=== PATIENT | male | born 1955 | race Caucasian/White ===

== ENCOUNTER 2017-08-24 14:54 | Emergency (ER) | payer OTHER ==
[~2017-08-24] VITALS: Ht 175.3 cm; Wt 78.0 kg
[~2017-08-24 14:54] MED LIST: LORA2TAB96 PO
[2017-08-24] MEDS ORDERED: LORazepam 1 MG tablet PO ONE (17:05)
[2017-08-24 17:46] VITALS: BP 137/88
== END 2017-08-24 17:59 | disposition home or self-care (01) ==
LOC: ER 14:55
DX: Z76.0 Encounter for issue of repeat prescription (principal); F41.9 Anxiety disorder, unspecified
CPT/HCPCS: 99283

== ENCOUNTER 2023-06-17 22:11 | Emergency (ER) | payer MEDICARE, MEDICAID ==
[~2023-06-17] VITALS: Ht 175.3 cm; Wt 80.7 kg
[2023-06-17 22:12] VITALS: TEMP 97.1
[2023-06-17] MEDS ORDERED: NIRM1TAB PO (23:37)
[2023-06-17 23:48] VITALS: BP 114/77; PULSE 85; RESP 18; O2SAT 98
== END 2023-06-17 23:51 | disposition home or self-care (01) ==
LOC: ER 22:12
DX: U07.1 COVID-19 (principal)
CPT/HCPCS: 36415; 87502; 87503; 87811; 99283

== ENCOUNTER 2023-06-25 09:03 | Emergency (ER) | payer MEDICARE, MEDICAID ==
[~2023-06-25] VITALS: Ht 175.3 cm; Wt 78.2 kg
[~2023-06-25 09:03] MED LIST changes: +NIRM1TAB PO
[2023-06-25 09:11] VITALS: TEMP 98.3
[2023-06-25] MEDS ORDERED: hyDROXYzine 50 mg/ml injection ***IM only IM ONE (09:40)
[2023-06-25] MEDS ORDERED: hydrOXYzine 25 MG tablet PO ONE (09:52)
[2023-06-25 10:16] VITALS: BP 122/74; PULSE 70; RESP 22; O2SAT 99
[2023-06-25] MEDS ORDERED: HYDR25CA PO (10:27)
[2023-06-25] MEDS ORDERED: ALPRAZolam 0.5mg tablet PO ONE (10:50)
--- NOTE | 2023-06-25 10:55 | NUR ---
Patient had anxiety/panic attack, complaining of shortness of breath. O2 sat 99%-100% on room air. lung sounds clear to auscultation. AARON Bartlett notified about this
--- NOTE | 2023-06-25 11:27 | NUR ---
Patient stated he was hungry, 2 orange juices and 3 yenny crackers given. Patient called his niece to give him a ride upon discharge. Ordered Xanax was given for anxiety
--- NOTE | 2023-06-25 11:31 | NUR ---
called [facility]ava to request to transfer Rx from [facility]. Spoke to the pharmacist on the phone who told me she will get it done and contact the other [facility]
--- NOTE | 2023-06-29 14:57 | NUR ---
PT CALLED AND STATED THAT HE WAS SEEN ON 06/25 FOR ANXIETY AND GIVEN AN RX FOR HYDROXZINE 25 MG; 1 PO Q8H x 7 DAYS. PT WANTED TO KNOW IF HE COULD TAKE AN EXTRA DOSE SINCE HE WAS HAVING ANOTHER ANXIETY ATTACK. PT WAS ADVISED TO TAKE THE MEDICATION DIRECTED AND INFORMED THAT IF NOT TAKEN DIRECTED THERE IS A RISK OF PERSONAL HARM; IE OVERDOSE. PT STATES THAT HE MAY HAVE TO COME BACK IN DUE TO HIM FEELING ANXIOUS AND FEELS LIKE HE CAN NOT BREATH. PT WAS ADVISED TO RETURN TO THE ER SHOULD HE FEEL THE NEED. ATTEMPTED TO CALL PT BACK AFTER SPEAKING WITH DR CASTANEDA REGARDING TAKING AN EXTRA DOSE OF HIS HYDROXZINE. PT'S PHONE WAS NOT TAKING MESSAGES. PER DR CASTANEDA PT COULD TAKE AN ADDITIONAL DOSE OF HIS HYDROXZINE. WILL TRY CALLING BACK.
== END 2023-06-25 11:59 | disposition home or self-care (01) ==
LOC: ER 09:03
DX: F41.9 Anxiety disorder, unspecified (principal); U09.9 Post COVID-19 condition, unspecified; Z79.899 Other long term (current) drug therapy
CPT/HCPCS: 71045; 93005; 99283; Q0177

== ENCOUNTER 2023-07-06 17:52 | Emergency (ER) | payer MEDICARE, MEDICAID ==
[~2023-07-06] VITALS: Ht 175.3 cm; Wt 79.7 kg
[~2023-07-06 17:52] MED LIST changes: +HYDR25CA PO
[2023-07-06 19:03] LABS: BILIRUBIN,URINE NEGATIVE (Neg); CLARITY,URINE CLEAR (Clear); COLOR,URINE YELLOW (Yellow); GLUCOSE, URINE NEGATIVE (Neg); KETONES,URINE NEGATIVE (Neg); LEUKOCYTE ESTERASE ,URINE NEGATIVE (Neg); NITRITES, URINE NEGATIVE (Neg); OCCULT BLOOD,URINE TRACE-INTACT (Neg); PH,URINE 5.5 (4.8-8.0); PROTEIN,URINE NEGATIVE (Neg); UROBILINOGEN,URINE 0.2 E.U/dL (0.2-1.0)
[2023-07-06 19:06] LABS: UA COLLECTION TYPE CLN CATCH MIDSTREAM
[2023-07-06 19:34] LABS: BACTERIA,URINE NONE SEEN /HPF (Neg); RBC,URINE 0-2 /HPF (0-2); SQUAMOUS EPITHELIAL CELL,UR FEW /LPF (FEW); WBC,URINE 0-4 /HPF (0-4)
[2023-07-06] MEDS ORDERED: ibuprofen tablet 400 MG TABLET PO ONE (19:50)
[2023-07-06] MEDS ORDERED: ZOLP5TAB2 PO ×3 (19:54→19:58)
[2023-07-06 21:04] VITALS: BP 144/82; PULSE 78; RESP 16; TEMP 98.4; O2SAT 98
== END 2023-07-06 21:06 | disposition home or self-care (01) ==
LOC: ER 17:53
DX: F41.9 Anxiety disorder, unspecified (principal); R35.0 Frequency of micturition; N40.0 Benign prostatic hyperplasia without lower urinary tract symptoms; Z79.899 Other long term (current) drug therapy
CPT/HCPCS: 81001; 99283

== ENCOUNTER 2025-06-29 05:30 | Day surgery (SDC) | payer MEDICARE, MEDICAID ==
[2025-06-29] VITALS (12 sets, daily range): BP systolic 110–125; BP diastolic 56–71; PULSE 83–95; RESP 16–22; TEMP 97.7; O2SAT 96–100
[~2025-06-29] VITALS: Ht 175.3 cm; Wt 64.9 kg
[~2025-06-29 05:30] MED LIST changes: +ALPR-624 PO; +ASPI-1071 PO; +ATI1T PO; +ENOX40SY7 SQ; +FLO0.4C PO; +FOLI1TAB27 PO; +GUAI120015 PO; +HYDR-3965 PO; -HYDR25CA PO; +LIDOcaine 2% Viscous 15ml cup MM ONE; -LORA2TAB96 PO; +METO-292 PO; -NIRM1TAB PO; +PANT-47 PO; +ringers solution, lacted 1,000 ML IV SCH
[2025-06-29] MEDS ORDERED: fentaNYL/PF 50MCG/1 ML 2ML syringe ONE (07:36)
[2025-06-29] MEDS ORDERED: MIDAZolam 1 MG/ML 5ML VIAL ONE (07:37)
[2025-06-29] MEDS ORDERED: LIDOcaine 2% Viscous 15ml cup ONE (07:37)
[2025-07-16] MEDS ORDERED: BUDE0.5A11 NEB (18:51)
[2025-07-16] MEDS ORDERED: ALBU18HF2 IH (18:51)
== END 2025-06-29 10:28 | disposition home or self-care (01) ==
LOC: GI LAB 05:30
PROVIDERS: ATTEND Internal Medicine Gastroenterology
DX: D50.0 Iron deficiency anemia secondary to blood loss (chronic) (principal); K22.70 Barrett's esophagus without dysplasia; E78.5 Hyperlipidemia, unspecified; F41.9 Anxiety disorder, unspecified; I49.9 Cardiac arrhythmia, unspecified; Z85.038 Personal history of other malignant neoplasm of large intestine; Z85.850 Personal history of malignant neoplasm of thyroid; Z85.118 Personal history of other malignant neoplasm of bronchus and lung; Z87.891 Personal history of nicotine dependence; Z98.890 Other specified postprocedural states
CPT/HCPCS: 43239; 88305; 88313; 88342; A4620; J2250; J3010; J7120; Z7512; Z7610; 99152